=== PATIENT | female | born 1960 ===

== ENCOUNTER 2021-10-24 06:30 | Day surgery (SDC) | payer BC ==
[~2021-10-24 06:30] MED LIST: Acetaminophen 325 MG Tab PO SCH; Lactated Ringers 1,000 ML IV SCH; Lidocaine 1%/Sod Bicarbonate in NS 8.4% 1 ML Syringe IDERM PRN; Pregabalin 25 MG Cap PO SCH; Sodium Chloride 0.9% 10 ML Syringe FLUSH PRN; Sodium Chloride 0.9% 10 ML Syringe FLUSH SCH; oxyCODONE ER 10 MG TAB.ER PO SCH
[2021-10-24] MEDS ORDERED: Propofol 200 MG/20 ML SDV ONE ×2 (07:02→07:03)
[2021-10-24] MEDS ORDERED: Lidocaine 1% 4 ML ONE (07:03)
[2021-10-24] MEDS ORDERED: ceFAZolin 1 GM Vial ONE (07:04)
[2021-10-24] MEDS ORDERED: fentaNYL 100 MCG/2 ML SDV ONE (07:06)
[2021-10-24] MEDS ORDERED: Midazolam 1 MG/ML 2 ML SDV ONE (07:06)
[2021-10-24] MEDS ORDERED: EPINEPHrine 1 MG/ML SDV ONE (07:12)
[2021-10-24] MEDS ORDERED: Ropivacaine 0.5% 5 MG/ML 30 ML SDV ONE (07:12)
[2021-10-24] MEDS ORDERED: ePHEDrine 50 MG/ML SDV ONE (08:24)
[2021-10-24] MEDS ORDERED: Lactated Ringers 1,000 ML ONE (08:56)
[2021-10-24] MEDS: Vancomycin 1 GM SDV ONE ×3 (09:06→09:36)
[2021-10-24] MEDS: Morphine 8 MG, EPINEPHrine 0.3 MG, Cefuroxime 750 MG, Ketorolac 30 MG, Sodium Chloride ... PRN ×15 (09:06→09:32)
[2021-10-24] MEDS ORDERED: Ondansetron 4 MG/2 ML SDV IVPUSH PRN (09:20)
[2021-10-24] MEDS ORDERED: diphenhydrAMINE 50 MG/ML SDV IVPUSH PRN (09:20)
[2021-10-24] MEDS ORDERED: fentaNYL 100 MCG/2 ML SDV IVPUSH PRN (09:20)
[2021-10-24] MEDS ORDERED: Ketorolac 30 MG/ML SDV ONE (09:45)
[2021-10-24] MEDS ORDERED: oxyCODONE 5 MG Tab PO ONE ×2 (10:44→11:45)
== END 2021-10-24 13:20 | disposition home or self-care (01) ==
LOC: JD.SDS 06:30
PROVIDERS: ATTEND Orthopaedic Surgery
DX: M17.12 Unilateral primary osteoarthritis, left knee (principal); E78.5 Hyperlipidemia, unspecified; E66.01 Morbid (severe) obesity due to excess calories; G47.33 Obstructive sleep apnea (adult) (pediatric); Z98.890 Other specified postprocedural states; Z79.899 Other long term (current) drug therapy; Z87.891 Personal history of nicotine dependence; Z68.42 Body mass index [BMI] 45.0-49.9, adult
CPT/HCPCS: 0055T; 27447; 73560; 97110; 97116; 97161; A9270; C1713; C1776; J0171; J0690; J0697; J1885; J2250; J2270; J2405; J2704; J2795; J3010; J3370; J7120; 01402; 64447; 76942